=== PATIENT | male | born 2000 | race Caucasian/White ===

== ENCOUNTER 2018-11-18 21:52 | Emergency (ER) | payer MEDICAID ==
[2018-11-18] MEDS: Fleet Enema 135 mL RC ONE (22:48)
--- NOTE | 2018-11-26 11:13 | ER Physician Documentation ---
DATE OF SERVICE: 11/18/2018 HISTORY OF PRESENT ILLNESS: This 18-year-old male patient presents to the Emergency Room because he is having constipation for 3 days. This patient was eating a regular diet and is urinating well. He last urinated about an hour prior to admission. This patient denies anorexia, nausea, vomiting or diarrhea. Denies trauma. Denies headaches, neck pain, chest pain, shortness of breath, abdominal pain, melena, hematemesis or hematochezia. The patient denies back pain and denies flank pain or any urinary symptoms. The patient denies fever or chills. PAST MEDICAL HISTORY: Per nurses' notes. MEDICATIONS: Per nurse's notes. ALLERGIES: Per nurse's notes. FAMILY HISTORY: Per nurses' notes. REVIEW OF SYSTEMS: Otherwise noncontributory. PHYSICAL EXAMINATION: found. GENERAL: The patient to be in no acute distress, alert and oriented x 3. VITAL SIGNS: Afebrile. Vital signs stable. HEENT: Negative. NECK: Supple. No meningeal signs. No cervical tenderness. CARDIOVASCULAR: Regular rate and rhythm. LUNGS: Clear with good breath sounds bilaterally. ABDOMEN: Soft, nontender, normal active bowel sounds. No pulsatile masses. RECTAL: Stool found, but there was positive fecal retention. Stool is negative for occult blood. EXTREMITIES: No edema, clubbing or cyanosis. NEUROLOGIC: Showed no focal signs. SKIN: Shows good turgor with moist mucous membranes. HOSPITAL COURSE: The patient received a Fleet's enema with good results. Lots of stool was released. The patient was asymptomatic upon discharge and thus the patient was discharged with a prescription for Fleet's enema and milk of magnesia 30 mL p.o. 3 times a day as needed p.r.n. constipation. The patient is to return to the Emergency Room as needed if the existing signs and symptoms shoulder reoccur and/or get worse and/or any other new symptoms should occur. Refer to botany professor as soon as possible; refer to the electronic scale assembler and tester as soon as possible. Aftercare instructions have been given for all above diagnosis. The patient is to return to the Emergency Room as needed if concerned. Otherwise, follow up care with primary physician in one day or as needed. DIAGNOSES: Constipation, fecal retention. JOB# [id number]
== END 2018-11-18 23:25 | disposition home or self-care (01) ==
LOC: ER 21:52
DX: K59.00 Constipation, unspecified (principal)
CPT/HCPCS: Z7502

== ENCOUNTER 2018-11-27 16:52 | Emergency (ER) | payer MEDICAID ==
--- NOTE | 2018-11-27 17:13 | ED Physician Chart ---
ED Chief Complaint/HPI - Patient Information Date Seen:: 11/27/18 Time Seen:: 17:07 Chief Complaint:: scrotal and lower abdomen pain History of Present Illness:: this is a 18 yr old male with several weeks of scrotal pain and lower abdominal pain. he denies nausea, vomiting and diarrhea. he states that he has urethral pain but no discharged. he denies fever and cough he was given rocehpin im several days ago. Allergies:: Allergies Allergy/AdvReac Type Severity Reaction Status Date / Time No Known Allergies Allergy Verified 11/18/18 22:16 Historian:: Patient Review:: Nurse's Note Reviewed, Old Chart Reviewed ED Review of Systems - Review of Systems General/Constitutional: No fever, No chills, No weight loss, No weakness, No diaphoresis, No edema, No loss of appetite Skin: No skin lesions, No rash, No bruising Head: No headache, No light-headedness Eyes: No loss of vision, No pain, No diplopia ENT: No earache, No nasal drainage, No sore throat, No tinnitus Neck: No neck pain, No swelling, No thyromegaly, No stiffness, No mass noted Cardio Vascular: No chest pain, No palpitations, No PND, No orthopnea, No edema Pulmonary: No SOB, No cough, No sputum, No wheezing GI: No nausea, No vomiting, No diarrhea, Pain, No melena, No hematochezia, No constipation, No hematemesis G/U: No dysuria, No frequency, No hematuria, Other (right testicle pain for weeks) Musculoskeletal: No bone or joint pain, No back pain, No muscle pain Endocrine: No polyuria, No polydipsia Psychiatric: No prior psych history, No depression, No anxiety, No suicidal ideation Hematopoietic: No bruising, No lymphadenopathy Allergic/Immuno: No urticaria, No angioedema Neurological: No syncope, No focal symptoms, No weakness, No paresthesia, No headache, No seizure, No dizziness, No confusion, No vertigo ED Past Medical History - Past Medical History Obtainable: Yes Past Medical History: No significant medical hx Family History: None Social History: Non Smoker, No Alcohol, No Drug Use, Single Surgical History: None Medication: Reviewed Family Medical History - Family Member Mother History Unknown: Yes ED Physical Exam - Physical Examination General/Constitutional: Awake, Well-developed, well-nourished, Alert, No distress, GCS 15, Non-toxic appearing, Ambulatory Head: Atraumatic Eyes: Lids, conjuctiva normal, PERRL, EOMI Skin: Nl inspection, No rash, No skin lesions, No ecchymosis, Well hydrated, No lymphadenopathy ENMT: External ears, nose nl, Nasal exam nl, Lips, teeth, gums nl Neck: Nontender, Full ROM w/o pain, No JVD, No nuchal rigidity, No bruit, No mass, No stridor Respiratory: Nl effort/Exclusion, Clear to Auscultation, No Wheeze/Rhonchi/Rales Cardio Vascular: RRR, No murmur, gallop, rubs, NL S1 S2 GI: No tenderness/rebounding/guarding (no abdominal wall tenderness or rebound) , No organomegaly, No hernia, Normal BS's, Nondistended, No mass/bruits, No McBurney tenderness : No CVA tenderness Other comments:: there is no testicular swelling of tenderness noted Extremities: No tenderness or effusion, Full ROM, normal strength in all extremities, No edema, Normal digits & nails Neuro/Psych: Alert/oriented, DTR's symmetric, Normal sensory exam, Normal motor strength, Judgement/insight normal, Mood normal, Normal gait, No focal deficits Misc: Normal back, No paraspinal tenderness ED Assessment - Assessment General Assessment: scrotal pain ED Septic Shock - . Is Septic Shock (SBP<90, OR Lactate>4 mmol\L) present?: No
[2018-11-27 17:24] LABS: % BASOPHILS 0.3 % (0.0-2.0); % EOSINOPHILS 0.4 % (0.0-5.0); % LYMPHOCYTES 19.4 % (20.0-50.0); % MONOCYTES 5.6 % (2.0-10.0); % NEUTROPHILS 74.3 % (40.0-80.0); HEMATOCRIT 46.2 % (41.0-60); HEMOGLOBIN 15.3 gm/dL (12-16); LYMPHOCYTE ABSOLUTE 1.7 Th/cmm (1.5-3.0); MEAN CELL VOLUME 89.8 fl (80-99); MEAN CORPUSCULAR HEMOGLOBIN 29.6 pg (26.0-30.0); MEAN PLATELET VOLUME 8.8 fl; MONOCYTE ABSOLUTE 0.5 Th/cmm (0.3-1.0); NEUTROPHILE ABSOLUTE 6.5 Th/cmm (1.8-8.0); PLATELET COUNT 175 Th/cmm (150-400); RED BLOOD COUNT 5.15 Mil/cmm (4.30-5.70); WHITE BLOOD COUNT 8.7 Th/cmm (4.8-10.8)
[2018-11-27 17:40] LABS: ALBUMIN 4.9 gm/dL (4.2-5.5); ALKALINE PHOSPHATASE 70 U/L (34-104); ANION GAP 14.5 (7.0-16.0); BILIRUBIN,TOTAL 0.3 mg/dL (0.3-1.0); BUN - UREA NITROGEN 10 mg/dL (7-25); CALCIUM SERUM 9.6 mg/dL (8.6-10.3); CARBON DIOXIDE 26.4 mEq/L (21.0-31.0); CHLORIDE 101 mEq/L (98-107); CREATININE - SERUM 1.1 mg/dL (0.7-1.3); GFR AFRICAN-AMERICAN > 60.0 ml/min (>90); GFR NON AFRICAN-AMERICAN > 60.0 ml/min; GLUCOSE 108 mg/dL (70-105); POTASSIUM SERUM 3.9 mEq/L (3.5-5.1); SGOT 15 U/L (13-39); SGPT/ALT 14 U/L (7-52); SODIUM SERUM 138 mEq/L (136-145); TOTAL PROTEIN,SERUM 7.3 gm/dL (6.0-8.3)
[2018-11-27 18:14] LABS: URINE SOURCE CLEAN C
[2018-11-27 18:16] LABS: URINE BILIRUBIN NEGATIVE (NEGATIVE); URINE BLOOD NEGATIVE (NEGATIVE); URINE GLUCOSE (UA) NEGATIVE (NEGATIVE); URINE KETONE NEGATIVE (NEGATIVE); URINE LEUKOCYTE ESTERASE NEGATIVE (NEGATIVE); URINE NITRATE NEGATIVE (NEGATIVE); URINE PROTEIN NEGATIVE (NEGATIVE); URINE UROBILINOGEN 0.2 E.U./dL (0.2 - 1.0)
[2018-11-27 18:18] LABS: URINE COLOR YELLOW
[2018-11-27 18:19] LABS: URINE CLARITY CLEAR (CLEAR); URINE MICROSCOPIC INDICATED? YES
[2018-11-27 18:21] LABS: URINE BACTERIA FEW /hpf (NONE SEEN); URINE EPITHELIAL CELLS FEW /lpf (FEW); URINE RBC 0-2 /hpf (0-5)
--- NOTE | 2018-11-28 10:34 | Diagnostic Imaging Report ---
Exam: Scrotal ultrasound HISTORY: Scrotal pain Findings: Real-time ultrasound examination of the scrotum was performed in multiple planes utilizing color Doppler technique. The study demonstrates normal echogenicity testis bilaterally with normal vascular flow. Right testicle measures 3.4 x 1.6 x 2.6 cm diameter. The right epididymis is normal. The left testis measures 3.6 x 1.6 x 2.2 cm diameter left the uterus is normal. There is no evidence of varicoceles or hydroceles. IMPRESSION: Normal examination of scrotum.
--- NOTE | 2018-11-28 10:39 | Diagnostic Imaging Report ---
CT scan of the abdomen and pelvis without intravenous contrast History: Pelvic pain Total DLP equals 512 CTDI equals 9.0 Axial sections were obtained from the xiphoid process down to the pubic symphysis. The liver demonstrates a normal size and contour. No focal lesions are seen. The spleen appears normal. No abnormalities are seen in the region of the pancreas. The kidneys appear normal bilaterally. The appendix is intact. The exam of the pelvis demonstrates preservation of normal fat planes. No abnormal soft tissue masses. No abnormal fluid collections. Impression: Negative examination
== END 2018-11-27 21:03 | disposition home or self-care (01) ==
LOC: ER 16:52
DX: N50.82 Scrotal pain (principal); R10.30 Lower abdominal pain, unspecified
CPT/HCPCS: 36415-UA; 76870-TC; 80053-TC; 81001-TC; 85025-TC; 86592-TC; Z7502